=== PATIENT | male | born 1990 | race Caucasian/White ===

== ENCOUNTER 2020-04-01 14:16 | Outpatient (CLI) | payer OTHER, SELFPAY | END 2020-04-01 14:17 | disposition home or self-care (01) | PROVIDERS: PCP Family Medicine; Visit Provider Surgery | DX: Z01.818 Encounter for other preprocedural examination (principal); K40.90 Unilateral inguinal hernia, without obstruction or gangrene, not specified as recurrent | CPT/HCPCS: 36415; 86850; 86900; 86901 ==

== ENCOUNTER 2020-04-06 01:05 | Outpatient (CLI) | payer OTHER, SELFPAY ==
[2020-04-06 19:58] LABS: SARS-CoV-2 RNA PCR Negative
== END 2020-04-06 01:06 | disposition home or self-care (01) ==
LOC: ANHCOVIDDT 01:05
PROVIDERS: PCP Family Medicine; Visit Provider Surgery
DX: Z01.812 Encounter for preprocedural laboratory examination (principal); Z20.828 Contact with and (suspected) exposure to other viral communicable diseases
CPT/HCPCS: 87635; C9803; U0003

== ENCOUNTER 2020-04-08 02:53 | Day surgery (SDC) | payer OTHER, SELFPAY ==
[2020-03-23 14:30] VITALS: BMI 22.4
--- NOTE | 2020-04-07 16:11 | P.PNAN_ITS ---
Anes - Initial Pre Proc Eval Procedure: Operation Date: 04/08/20 12:00 Proposed Procedures p Laparoscopic Left Inguinal Hernia Repair With Mesh, Davinci Assisted - Rocky Fatima DO Date/Time: 04/07/20 16:11 Surgeon: Rocky Fatima DO Pre Op Diagnosis: Left Inguinal Hernia Patient Data Age: 29 Gender: M Height: 1.88 m Weight: 79.38 kg Allergies Allergy/AdvReac Type Severity Reaction Status Date / Time No Known Allergies Allergy Mild Verified 03/23/20 14:30 Home Medications Medication Instructions Recorded Confirmed Type No Home Medications 03/05/20 03/23/20 History Patient hx anesthesia problems: none Family hx anesthesia problems: none PMFSH Surgical History Surgical History [place] teeth removed Family History Family History Father Hypertension Social History Social History Smoking status: Never smoker Alcohol intake: current Drinks per week: 2 Additional occupation/education comments: [employer] Spiritual care concerns: No Anes - Eval Final PreProcedure Day of Procedure 04/07/20 16:11 Patient weight: normal Heart: regular rate and rhythm Lungs: clear to auscultation and normal air movement Airway: Mallampati scale class II Neurological: alert and oriented Last oral intake: >/= 8 hours ASA classification: I Emergent: no Anesthetic plan: proceed Anesthesia type and monitoring: general ETT Informed Consent: The patient's anesthetic plan and its attendant risks and benefits were discussed with the patient/family/POA. Questions were solicited an d answers provided to the satisfaction of the patient/family/POA.
[2020-04-08] VITALS (11 sets, daily range): BP systolic 87–135; BP diastolic 54–84; PULSE 64–98; RESP 12–23; TEMP 36.2–36.9; O2SAT 98–100
[2020-04-08] MEDS: LACTATED RINGERS 1,000 ML 30 ML IV CONT ×2 (10:30→14:14)
[2020-04-08] MEDS: ACETAMINOPHEN 500 MG TABLET 1000 MG PO (10:31)
[2020-04-08] MEDS: KETOROLAC 15 MG/ML VIAL (*BKC) IV PUSH (10:32)
--- NOTE | 2020-04-08 11:30 | SUR.PREOP ---
PT MADE AWARE OF SURGERY DELAY. OFFERED COMFORT MEASURES. DENIES NEEDS.
--- NOTE | 2020-04-08 12:03 | WPDHPUPDATE1 ---
History and Physical Update Update Date/Time: 04/08/20 12:03 History and Physical has been reviewed, including an updated exam of the patient. There are NO changes in the patient's condition. Risks, benefits, and alternatives have been discussed and questions answered. Patient agrees to proceed with procedure.
[2020-04-08] MEDS: ceFAZolin 2 GM/D5W 50 ML 2 GM/50 ML BAG IVPB (12:42)
[2020-04-08] MEDS: BUPIVACAINE/EPINEPHRINE 0.25% 50 ML VIAL INFILTRATE (13:10)
--- NOTE | 2020-04-08 13:57 | PM.PROC ---
Procedure Note - Detailed Date of procedure: 04/08/20 Pre-op diagnosis: Left Inguinal Hernia Post-op diagnosis: same (Indirect LIH) Procedure performed: Laparoscopic left inguinal hernia repair with Progrip mesh, da Maria Fernanda assisted Description of procedure: Procedure as well as risks, benefits, and alternatives were discussed with the patient. Written consent was obtained and placed in chart prior to procedure. Patient was brought back to surgical suite. He was placed supine on operating table. Time-out was done to confirm patient and procedure. He was then intubated by Anesthesia Department. His abdomen was prepped and draped in sterile fashion using chlorhexidine prep. 0.5% bupivacaine with epinephrine was infiltrated at each location for incision. A 12 millimeter transverse incision was made just superior to the umbilicus using a 15 blade scalpel. Blunt dissection was carried out down to the linea alba. A vertical incision was made at the linea alba using a 15 blade scalpel. The peritoneum was then bluntly entered. A 12 millimeter trocar was inserted and carbon dioxide insufflation was used to create a pneumoperitoneum. A camera was inserted and the abdominal cavity was inspected. The patient was placed in slight Trendelenburg position. An 8 millimeter incision was made on the right lateral abdomen and an 8 millimeter trocar was inserted under direct visualization. Another 8 millimeter incision was made in the left lateral abdomen and an 8 millimeter trocar was inserted under direct visualization. The robotic arms were brought up to the patient's bedside and secured to the ports. The camera and instruments were inserted. I then moved over to the robotic console and took control of the camera and instruments. After careful inspection of the abdominal cavity, I began scoring the peritoneum along the left lower quadrant using scissors with electrocautery. The preperitoneal plane was entered and this was carefully dissected caudally along the inferior epigastric vessels. Careful dissection with scissors with electrocautery and blunt dissection was used to continue this dissection. I dissected far enough laterally to allow for mesh placement, and also dissected medially to identify the pubic arch and Joaquim's ligament. The hernia sac was identified and carefully dissected posteriorly. The cord contents were also identified and the peritoneum was carefully dissected far enough posteriorly to allow for mesh placement. Once an adequate pocket was created, I then placed the mesh within the preperitoneal pocket and carefully unfolded it. The mesh was centered on the hernia defect with adequate overlap circumferentially. The inferior edge of the mesh was inspected to ensure that it was far enough away from the peritoneal edge. The mesh appeared in proper position overlying the entire myopectineal orifice. The peritoneum was then closed over the mesh using a 3-0 V-lock running absorbable suture. The robotic instruments were removed. The robotic arms were disengaged from the ports and moved away from the bedside. The patient was flattened out in bed, the ports were removed under direct visualization, and the pneumoperitoneum was released. The fascia of the umbilical incision was approximated using an 0 Vicryl [id number] suture. The skin of the incisions was approximated using 4-0 Monocryl subcuticular suture, and Exofin glue was applied on top. The patient was awakened from anesthesia, extubated, and transferred to recovery. Implants: Progrip Mesh 10cm x 15cm Anesthesia: GETA and local (0.5% bupivicaine with epi) Surgeon: Rocky Fatima DO Estimated blood loss (mL): 10 Drains: No Packing: No Pathology: none sent Complications: No immediate complications Condition: stable Disposition: same day Findings: Robotic assisted laparoscopic left inguinal hernia repair was performed. Patient was found to have a reducible indirect left inguinal herni
[2020-04-08] MEDS: ONDANSETRON INJ 4 MG/2 ML VIAL IV PUSH (15:29)
--- NOTE | 2020-04-08 15:38 | SUR.PHASEII ---
1530- c/o nausea. medicated for same. resting quietly at this time.
--- NOTE | 2020-04-08 17:12 | SUR.PHASEII ---
1700- pt voided sufficiently.
== END 2020-04-08 17:10 | disposition home or self-care (01) ==
PROVIDERS: PCP Family Medicine; Visit Provider Surgery
PROC: 8E0Y4CZ Robotic Assisted Procedure of Lower Extremity, Percutaneous Endoscopic Approach (ICD-10-PCS; CPT 49650; principal; 2020-04-08 12:00)
DX: K40.90 Unilateral inguinal hernia, without obstruction or gangrene, not specified as recurrent (principal)
CPT/HCPCS: 49650; S2900; A9270; C1781; J0690; J1100; J1170; J1885; J2250; J2370; J2405; J2704; J2710; J3010; J7030; J7120

== ENCOUNTER 2022-05-19 07:56 | Outpatient (CLI) | payer OTHER, SELFPAY ==
--- NOTE | ~2022-05-19 | US_ITS ---
Limited Abdominal Sonogram: Real-time sonographic imaging of the right upper quadrant was performed. Clinical History: Right upper quadrant pain Findings: The liver appears normal with no evidence of mass lesion or bile duct dilatation. Main por cipriano vein demonstrates normal direction of flow. The gallbladder is well distended, and appears normal with no evidence of gallstone or wall thickening. The common bile duct measures 5 mm. The visualize d pancreas, aorta, and IVC are unremarkable. Impression: No significant abnormality seen. Reviewed, dictated and finalized at location [] [facility] Impression: No significant abnormality seen.
== END 2022-05-19 07:57 | disposition home or self-care (01) ==
PROVIDERS: PCP Family Medicine; Visit Provider Family Medicine
DX: R10.11 Right upper quadrant pain (principal)
CPT/HCPCS: 76705

== ENCOUNTER 2023-02-10 12:04 | Outpatient (CLI) | payer OTHER, SELFPAY | END 2023-02-10 12:05 | disposition home or self-care (01) | PROVIDERS: PCP Family Medicine; Visit Provider Surgery | DX: K40.90 Unilateral inguinal hernia, without obstruction or gangrene, not specified as recurrent (principal); Z01.818 Encounter for other preprocedural examination | CPT/HCPCS: 36415; 86850; 86900; 86901 ==

== ENCOUNTER 2023-02-14 00:34 | Day surgery (SDC) | payer OTHER, SELFPAY ==
[2023-02-08 08:09] VITALS: BMI 25.0
--- NOTE | 2023-02-08 08:10 | PC.NURSE ---
Report to the Outpatient Waiting Room, entrance under the green pavilion located off [facility], at time _1030_ on date _[id number]_. Planned Procedure Time: _1230_. Time changes happen often and if your time is changed the preop area will call you the afternoon before. - You and your visitor will be asked to self-screen and do not enter if you have any COVID symptoms. - A mask is optional within the hospital at this time. Patients may have clear liquids (water, carbonated beverages, clear teas, apple juice) until 3 hours prior to surgery with a maximum of 20 ounces. - No food from midnight until time of surgery Take the following medications with a SIP of water the morning of surgery: ___None DO NOT STOP ANY OF YOUR OTHER PRESCRIPTION MEDICATIONS PRIOR TO SURGERY ?EXCEPT THE FOLLOWING Medications to discontinue per physician ____None Date to take last dose Please no make-up, nail french, hairspray, perfume, deodorant, or body powder the day of surgery. No jewelry (including any body piercings) or valuables the day of surgery, leave them at home. Please take a shower the morning of, surgery with an Hebiclense (Chlorhexadine gluconate) an antibacterial soap. Wear comfortable, loose fitting clothing. - Jewelry must be removed prior to entering the operating room. Rings and piercings that are not removed may be cut off. - The hospital will not accept responsibility for valuables. - Please leave all valuables, including medications, at home the day of surgery. If you are going home after surgery, a licensed cement mixer driver must drive you home. - NO public transportation without another adult if you receive anesthesia. - We recommend that an adult stay with you for 24 hours following discharge. - We also recommend that you do not drive, make important decision, drink alcoholic beverages, or take any drugs that were not prescribed by your health care provider for at least 24 hours after your discharge time. Follow any additional instructions given to you from your surgeon. If you or anyone in your household have experienced Covid symptoms in the past week, please notify your surgeon or the nurse liaison at the phone number below for possible testing. Telephone instructions given to _Patient__and asked if any additional questions and then verbalized understanding. Patient advised to call surgeon office or pre surgery nurse liaison [phone] if any additional questions.
[2023-02-14] VITALS (8 sets, daily range): BP systolic 100–139; BP diastolic 57–84; PULSE 77–96; RESP 13–16; TEMP 36.3–37.1; O2SAT 99–100; BMI 25.0
[2023-02-14] MEDS: LACTATED RINGERS 1,000 ML 30 ML IV CONT ×2 (11:05→13:25)
[2023-02-14] MEDS: KETOROLAC 15 MG/ML VIAL (*BKC) IV PUSH (11:11)
[2023-02-14] MEDS: ACETAMINOPHEN 500 MG TABLET 1000 MG PO (11:11)
--- NOTE | 2023-02-14 11:43 | WPDHPUPDATE1 ---
History and Physical Update Update Date/Time: 02/14/23 11:43 History and Physical has been reviewed, including an updated exam of the patient. There are NO changes in the patient's condition. Risks, benefits, and alternatives have been discussed and questions answered. Patient agrees to proceed with procedure.
--- NOTE | 2023-02-14 11:43 | PM.IMHP ---
H&P: HPI History of Present Illness Date/Time: 02/14/23 11:43 Chief Complaint: Right inguinal hernia Narrative: This is a 32-year-old man who presents for right inguinal hernia repair. He reports no changes since last seen in the office. Review of Systems Review of Systems: All systems reviewed & are unremarkable except as noted in HPI and below Constitutional: Constitutional: Denies chills, Denies fever(s), Denies headache(s) and Denies weight loss Eyes: Eyes: Denies change in vision ENT: Denies dizziness, Denies headache(s), Denies neck mass and Denies throat swelling Cardiovascular: Cardiovascular: Denies chest pain, Denies lightheadedness and Denies dyspnea Respiratory: Respiratory: Denies cough, Denies dyspnea and Denies wheezing Gastrointestinal: Gastrointestinal: Denies abdominal pain, Denies change in bowel habits, Denies nausea and Denies vomiting Genitourinary: Genitourinary: Denies hematuria and Denies dysuria Musculoskeletal: Musculoskeletal: Reports as per HPI Integumentary/Breasts: Skin/Breast: Reports as per HPI Neurologic: Denies dizziness and Denies headache(s) Allergic/Immunologic: Allergic/Immunologic: Denies throat swelling and Denies wheezing PMFSH Past Medical History Medical History Pure hypercholesterolemia, unspecified Tachycardia, unspecified Surgical History Surgical History History of inguinal hernia repair 04/08/20 laparoscopic LIH repair with progrip mesh, davinci assisted. [place] teeth removed Family History Family History Father Hypertension Social History Social History Smoking status: Never smoker Alcohol intake: current Drinks per week: 2 Alcohol use details: social Substance use: never Substance use type: does not use Lack of Transportation: No Lack of Food: Never True Current Housing: I Have Housing Concerned About Future Housing: No Difficulty Paying Gas/Electric Bills: No Difficulty Paying for Meds: No Currently Unemployed: No Education: Bachelor's Degree Difficulty w/ Childcare or Family Care: No Living arrangements: with family Occupation/Education: occupation Additional occupation/education comments: Salesman Gender identity (if verbalized by the patient): Male Sexual Orientation (if Verbalized by the Patient): Straight or Heterosexual Spiritual care concerns: No Meds Home Medications and Allergies Home Medications Medication Instructions Recorded Confirmed Type No Home Medications 04/23/20 02/14/23 History Allergies Allergy/AdvReac Type Severity Reaction Status Date / Time No Known Allergies Allergy Mild Verified 02/14/23 11:02 Exam Const: General: no acute distress and alert Orientation/consciousness: patient oriented x3 HENMT: Head: normocephalic and atraumatic Ears: hearing grossly normal bilaterally Face/Nose/Sinus: Normal nares present Mouth: Yes Normal oral and palatal mucosa present Eyes: Periorbital: periorbital findings normal Sclera: sclerae normal EOM: EOMs intact bilaterally Neck: Neck: normal visual inspection, no lymphadenopathy and trachea midline Chest: Chest palpation & inspection: normal inspection of the chest Resp: Effort & Inspection: normal respiratory effort Auscultation: clear to auscultation bilaterally Cardio: Jugular venous distension: no JVD Rate: regular rate Rhythm: regular rhythm Heart sounds: S1 normal heart sound present and S2 normal heart sound present Peripheral pulses: Peripheral pulses 2+ throughout GI: Inspection: normal to inspection GI Palp: Yes Soft to palpation, No Tenderness to palpation present (GI), No Guarding due to palpation present (GI) and No Rebound tenderness present Percussion: Yes normal to percuss
[2023-02-14] MEDS: SCOPOLAMINE 1.5 MG PATCH TRANSDERM (12:05)
--- NOTE | 2023-02-14 12:05 | WPDANESEPPF ---
Anes - Initial Pre Proc Eval Procedure: Operation Date: 02/14/23 12:30 Proposed Procedures p Laparoscopic Right Inguinal Hernia Repair with Mesh, Davinci Assisted - Rocky Fatima DO Date/Time: 02/14/23 12:05 Surgeon: Rocky Fatima DO Pre Op Diagnosis: Rt Ing Hernia Patient Data Age: 32 Gender: M Height: 1.88 m Weight: 88.2 kg Allergies Allergy/AdvReac Type Severity Reaction Status Date / Time No Known Allergies Allergy Mild Verified 02/14/23 11:02 Home Medications Medication Instructions Recorded Confirmed Type No Home Medications 04/23/20 02/14/23 History Patient hx anesthesia problems: post op nausea/vomiting Family hx anesthesia problems: none Results Review: All pre-operative results and documents have been reviewed as part of the pre-operative evaluation. [facility] Past Medical History Medical History Pure hypercholesterolemia, unspecified Tachycardia, unspecified Surgical History Surgical History History of inguinal hernia repair 04/08/20 laparoscopic LIH repair with progrip mesh, davinci assisted. [place] teeth removed Family History Family History Father Hypertension Social History Social History Smoking status: Never smoker Alcohol intake: current Drinks per week: 2 Alcohol use details: social Substance use: never Substance use type: does not use Lack of Transportation: No Lack of Food: Never True Current Housing: I Have Housing Concerned About Future Housing: No Difficulty Paying Gas/Electric Bills: No Difficulty Paying for Meds: No Currently Unemployed: No Education: Bachelor's Degree Difficulty w/ Childcare or Family Care: No Living arrangements: with family Occupation/Education: occupation Additional occupation/education comments: Salesman Gender identity (if verbalized by the patient): Male Sexual Orientation (if Verbalized by the Patient): Straight or Heterosexual Spiritual care concerns: No Anes - Eval Final PreProcedure Day of Procedure 02/14/23 12:05 Patient weight: normal Heart: regular rate and rhythm Lungs: clear to auscultation Airway: Mallampati scale Neurological: alert and oriented Last oral intake: >/= 8 hours ASA classification: II Anesthetic plan: proceed Anesthesia type and monitoring: general ETT and standard monitoring Results Review: All pre-operative results and documents have been reviewed as part of the pre-operative evaluation. Informed Consent: The patient's anesthetic plan and its attendant risks and benefits were discussed with the patient/family/POA. Questions were solicited and answers provided to the satisfaction of the patient/family/POA.
[2023-02-14] MEDS: ceFAZolin 2 GM/D5W 50 ML 2 GM/50 ML BAG IVPB (12:12)
--- NOTE | 2023-02-14 13:16 | W.PM.PROC2 ---
Procedure Note - Detailed Date of Procedure 02/14/23 Pre-op Diagnosis Right inguinal hernia Post-op Diagnosis Same (Indirect RIH) Procedure Performed Laparoscopic right inguinal hernia repair with mesh, da Maria Fernanda assisted Surgeon Rocky Fatima, DO Anesthesia General and Local (0.5% bupivacaine with epinephrine) Indications This is a 32-year-old man who presented with right groin pain that he noticed about 3 months ago. He 1st noticed this well he was lifting weights. This felt similar to when he had a left inguinal hernia 3 years ago. He was found to have a reducible right inguinal hernia on physical exam. Discussions were made with the patient about treatment options and decision was made to proceed with laparoscopic right inguinal hernia repair with mesh da Maria Fernanda assisted. Findings Laparoscopic right inguinal hernia repair was performed. The patient was found to have evidence of a small indirect right inguinal hernia. There was no sign of a recurrent left inguinal hernia and the previous hernia mesh on the left side appeared in proper position. A robotic transabdominal preperitoneal approach was utilized for the right inguinal hernia repair. Once a wide enough preperitoneal pocket was created and the hernia sac was reduced, I then placed a large right Bard 3DMax mid mesh overlying the entire right myopectineal orifice. Description of Procedure Procedure as well as risks, benefits, and alternatives were discussed with the patient. Written consent was obtained and placed in chart prior to procedure. Patient was brought back to surgical suite. He was placed supine on operating table. Time-out was done to confirm patient and procedure. He was then intubated by Anesthesia Department. His abdomen was prepped and draped in sterile fashion using chlorhexidine prep. 0.5% bupivacaine with epinephrine was infiltrated at each location for incision. An 8 mm incision was made in the left lateral abdomen, and a 5 mm Optiview trocar was advanced through the abdominal layers under direct visualization. Once inside the abdominal cavity, carbon dioxide insufflation was used to create a pneumoperitoneum. A camera was inserted and the abdominal cavity was inspected. The patient was placed in slight Trendelenburg position. An 8 millimeter incision was made on the right lateral abdomen and an 8 millimeter trocar was inserted under direct visualization. Another 8 millimeter incision was made just superior to the umbilicus and an 8 millimeter trocar was inserted under direct visualization. The 5 mm port was then removed and this was replaced with another 8 mm robotic port. The robotic arms were brought up to the patient's bedside and secured to the ports. The camera and instruments were inserted. I then moved over to the robotic console and took control of the camera and instruments. After careful inspection of the abdominal cavity, I began scoring the peritoneum along the right lower quadrant using scissors with electrocautery. The preperitoneal plane was entered and this was carefully dissected caudally along the inferior epigastric vessels. Careful dissection with scissors with electrocautery and blunt dissection was used to continue this dissection. I dissected far enough laterally to allow for mesh placement, and also dissected medially to identify the pubic arch and Joaquim's ligament. The hernia sac was identified and carefully dissected posteriorly. The cord contents were also identified and the peritoneum was carefully dissected far enough posteriorly to allow for mesh placement. Once an adequate pocket was created, I then placed the mesh within the preperitoneal pocket and carefully unfolded it. The mesh was centered on the hernia defect with adequate overlap circumferentially. The inferior edge of the mesh was inspected to ensure that it was far enough away from the peritoneal edge. The mesh appeared in proper position overlying the entire myopectineal or
[2023-02-14] MEDS: fentaNYL CITRATE INJ (*CRX) 100 MCG/2 ML VIAL 25 MCG IV PUSH ×2 (14:21→14:23)
[2023-02-14] MEDS: oxyCODONE HCL (*CRX) 5 MG TAB IR PO (14:54)
== END 2023-02-14 15:35 | disposition home or self-care (01) ==
PROVIDERS: PCP Family Medicine; Visit Provider Surgery
PROC: 8E0Y4CZ Robotic Assisted Procedure of Lower Extremity, Percutaneous Endoscopic Approach (ICD-10-PCS; CPT 49650; principal; 2023-02-14 12:30)
DX: K40.90 Unilateral inguinal hernia, without obstruction or gangrene, not specified as recurrent (principal)
CPT/HCPCS: 49650; S2900; 36415; 86850; 86900; 86901; A9270; C1781; J0690; J1100; J1885; J2250; J2405; J2704; J3010; J7120

== ENCOUNTER 2024-02-07 01:15 | Day surgery (SDC) | payer OTHER, SELFPAY ==
[2024-01-23 13:30] VITALS: BMI 24.0
[2024-02-07 12:11] VITALS: BP 129/79; PULSE 90; RESP 20; TEMP 36.2; O2SAT 100
[2024-02-07] MEDS: LACTATED RINGERS 1,000 ML 150 ML IV CONT (12:19)
--- NOTE | 2024-02-07 12:48 | WPDANESEPPF ---
Anes - Initial Pre Proc Eval Procedure: Operation Date: 02/07/24 13:30 Proposed Procedures p Colonoscopy - George Guido MD Date/Time: 02/07/24 12:48 Surgeon: George Guido MD Pre Op Diagnosis: melena Patient Data Age: 33 Gender: M Height: 1.88 m Weight: 81.2 kg Last Vital Signs Temp 97.2 F L 02/07/24 12:11 Pulse 90 02/07/24 12:11 Resp 20 02/07/24 12:11 BP 129/79 02/07/24 12:11 Pulse Ox 100 02/07/24 12:11 O2 Del Method Room Air 02/07/24 12:11 Allergies Allergy/AdvReac Type Severity Reaction Status Date / Time No Known Allergies Allergy Mild Verified 02/07/24 12:08 Home Medications Medication Instructions Recorded Confirmed Type No Home Medications 01/23/24 01/23/24 History Patient hx anesthesia problems: none Family hx anesthesia problems: none Results Review: All pre-operative results and documents have been reviewed as part of the pre-operative evaluation. [facility] Past Medical History Medical History Pure hypercholesterolemia, unspecified Tachycardia, unspecified Surgical History Surgical History History of inguinal hernia repair 04/08/20 laparoscopic LIH repair with progrip mesh, davinci assisted. History of inguinal hernia repair 02/14/2023 Laparoscopic robotic assisted right inguinal hernia repair [place] teeth removed Family History Family History Father Hypertension Social History Social History Smoking status: Never smoker Alcohol intake: current Drinks per week: 2 Alcohol use details: social Substance use: never Substance use type: does not use Do You Feel Safe in your Home?: Yes Lack of Transportation: No Lack of Food: Never True Current Housing: I Have Housing Concerned About Future Housing: No Difficulty Paying Gas/Electric Bills: No Difficulty Paying for Meds: No Currently Unemployed: No Education: Bachelor's Degree Difficulty w/ Childcare or Family Care: No Living arrangements: with family Occupation/Education: occupation Additional occupation/education comments: Salesman Gender identity (if verbalized by the patient): Male Sexual Orientation (if Verbalized by the Patient): Straight or Heterosexual Spiritual care concerns: No Anes - Eval Final PreProcedure Day of Procedure 02/07/24 12:48 Patient weight: normal Heart: regular rate and rhythm Lungs: clear to auscultation Airway: Mallampati scale class II Neurological: alert and oriented Last oral intake: >/= 8 hours ASA classification: II Emergent: no Anesthetic plan: proceed Anesthesia type and monitoring: general GIVS and standard monitoring Results Review: All pre-operative results and documents have been reviewed as part of the pre-operative evaluation. Informed Consent: The patient's anesthetic plan and its attendant risks and benefits were discussed with the patient/family/POA. Questions were solicited and answers provided to the satisfaction of the patient/family/POA.
--- NOTE | 2024-02-07 13:08 | PM.HPGS ---
History of Present Illness History of Present Illness Consent: Risks, benefits, and alternatives have been discussed and questions answered. Patient agrees to proceed with procedure. Chief complaint: melena Narrative: Gregory Turk is a 33 year old male here for first colonoscopy, had rectal bleeding Review of Systems Review of Systems: All systems reviewed & are unremarkable except as noted in HPI and below PMFSH Past Medical History Medical History (Updated 02/07/24 @ 13:11 by George Guido MD) Pure hypercholesterolemia, unspecified Rectal bleeding Tachycardia, unspecified Surgical History Surgical History History of inguinal hernia repair 04/08/20 laparoscopic LIH repair with progrip mesh, davinci assisted. History of inguinal hernia repair 02/14/2023 Laparoscopic robotic assisted right inguinal hernia repair [place] teeth removed Family History Family History Father Hypertension Social History Social History Smoking status: Never smoker Alcohol intake: current Drinks per week: 2 Alcohol use details: social Substance use: never Substance use type: does not use Do You Feel Safe in your Home?: Yes Lack of Transportation: No Lack of Food: Never True Current Housing: I Have Housing Concerned About Future Housing: No Difficulty Paying Gas/Electric Bills: No Difficulty Paying for Meds: No Currently Unemployed: No Education: Bachelor's Degree Difficulty w/ Childcare or Family Care: No Living arrangements: with family Occupation/Education: occupation Additional occupation/education comments: [employer] Gender identity (if verbalized by the patient): Male Sexual Orientation (if Verbalized by the Patient): Straight or Heterosexual Spiritual care concerns: No Meds Home Medications and Allergies Home Medications Medication Instructions Recorded Confirmed Type No Home Medications 01/23/24 01/23/24 History Allergies Allergy/AdvReac Type Severity Reaction Status Date / Time No Known Allergies Allergy Mild Verified 02/07/24 12:08 Vital Signs Vital Signs - 24 hr 02/07/24 12:11 Temperature 97.2 F L Pulse Rate 90 Respiratory Rate 20 Blood Pressure 129/79 Pulse Oximetry 100 Oxygen Delivery Room Air Exam Const: General: comfortable and no acute distress HENMT: Face/Nose/Sinus: Normal nares present Eyes: General: appearance normal, both eyes and all related structures Neck: Neck: no JVD Resp: Auscultation: clear to auscultation bilaterally Cardio: Rate: regular rate Rhythm: regular rhythm GI: Inspection: non-distended GI Palp: Yes Soft to palpation Skin: General skin exam: normal color Neuro: General: gait normal Speech: normal speech Extrem: General: normal to inspection Psych: Mental Status: mental status grossly normal Assessment and Plan Assessment and plan (1) Rectal bleeding: Code(s): K62.5 - Hemorrhage of anus and rectum Status: Acute Assessment and Plan: colonoscopy
[2024-02-07 13:32] VITALS: BP 102/72; PULSE 86; RESP 21; O2SAT 100
[2024-02-07 13:42] VITALS: BP 108/74; PULSE 78; RESP 20; O2SAT 100
[2024-02-07 13:52] VITALS: BP 127/83; PULSE 77; RESP 19; O2SAT 99
== END 2024-02-07 13:57 | disposition home or self-care (01) ==
PROVIDERS: PCP Family Medicine; Visit Provider Internal Medicine Gastroenterology
PROC: 0DJD8ZZ Inspection of Lower Intestinal Tract, Via Natural or Artificial Opening Endoscopic (ICD-10-PCS; CPT 45378; principal; 2024-02-07 13:30)
DX: D12.5 Benign neoplasm of sigmoid colon (principal); K64.8 Other hemorrhoids
CPT/HCPCS: 45385; 88305; J2704; J7120

== ENCOUNTER 2024-03-13 16:02 | Outpatient (CLI) | payer OTHER, SELFPAY ==
--- NOTE | ~2024-03-13 | CT_ITS ---
CLINICAL INDICATION: Left-sided abdominal pain. COMPARISON: None. TECHNIQUE: Computed tomography (CT) of the abdomen and pelvis was performed without intravenous contr ast. The dose-length product was 434.92 mGy-cm. FINDINGS/OBSERVATIONS: Visualized lower thorax:The bilateral lung bases are clear. The heart is of normal size, without pericardial effusion. Liver: The liver is unremarkable in size but decreased in attenuation suggesting fatty infiltration. Gallbladder and biliary system: The gallbladder is decompressed, limiting its evaluation. Pancreas: Limited evaluation of the pancreas secondary to the lack of intravenous contrast. Spleen: The spleen demonstrates homogeneous attenuation and is borderline enlarged measuring 12 cm in longitudinal dimension. Kidneys: Multiple 2 and 3 mm calcified stones are identified primarily within the lower pole of the l eft kidney without hydronephrosis. No discrete calculi are detected within the right kidney. Adrenal glands: The bilateral adrenal glands are unremarkable in their course and contour. Gastrointestinal tract: Significant fecal stasis is identified within the colon. Scattered diverticuli are identified within the sigmoid colon Appendix:The air-filled retrocecal appendix is of normal caliber and extends medially (series 3, imag e 130). Vasculature: No significant calcification is identified within the abdominal aorta. Although not to the ideal modality for evaluation, dilated veins are identified within the scrotum (r ight greater than left) measuring up to 4.4 mm, for which a varicocele is suspected, and clinical cor relation is needed. Lymph nodes: No pathologically enlarged or morphologically suspicious lymph nodes are identified with in the retroperitoneum or at the root of the mesentery. Pelvic structures:The bladder is only minimally distended, but otherwise unremarkable. The prostate gland is not enlarged. Body wall and musculoskeletal: Small fat-containing umbilical hernia. IMPRESSION: Multiple left renal nonobstructing calculi measuring 2 and 3 mm. Borderline splenic enlargement. Additional findings which may represent bilateral varicoceles, as detailed above (for which clinical correlation is needed). Sigmoid diverticulosis without surrounding inflammation. Reviewed, dictated and finalized at location A. IMPRESSION: Multiple left renal nonobstructing calculi measuring 2 and 3 mm. Borderline splenic enlargement. Additional findings which may represent bilateral varicoceles, as detailed abov e (for which clinical correlation is needed). Sigmoid diverticulosis without surrounding inflammation.
== END 2024-03-13 16:03 | disposition home or self-care (01) ==
LOC: ANHIMG 16:04
PROVIDERS: PCP Family Medicine; Visit Provider Family Medicine
DX: N20.0 Calculus of kidney (principal); K57.30 Diverticulosis of large intestine without perforation or abscess without bleeding
CPT/HCPCS: 74176

== ENCOUNTER 2024-09-18 15:27 | Outpatient (CLI) | payer OTHER, SELFPAY ==
--- NOTE | ~2024-09-18 | XR_ITS ---
Exam: Abdomen 1V HISTORY: personal history of kidney stones COMPARISON: Reference is made to CT examination of the abdomen and pelvis dated 03/13/2024, which demo nstrated nonobstructing stones within the lower pole of the left kidney TECHNIQUE: Supine images of the abdomen FINDINGS: Bowel gas pattern is non-obstructive. There is no free air or deep sulci. Significant fecal stasis is identified projecting within the colon, which obscures the presence or ab sence of renal calculi within the retroperitoneum. Lung bases are not included. Bones and soft tissues are unremarkable. IMPRESSION: Significant fecal stasis within the colon, obscuring the presence or absence of renal calculi within the retroperitoneum. Reviewed, dictated and finalized at location A.
--- OUTSIDE RECORDS SUMMARY | 2024-09-18 16:38 | XMS_ITS | Data Portability ---
Author Organization [facility], Main Office Address [address] [place] [address] Assessment No assessment recorded. Plan of Treatment Reminders Order Date Submit Date Provider Last Modified By Organization Details Last Modified Time Details Appointments None record ed. Lab None record ed. Referral None record ed. Procedures None record ed. Surgeries None record ed. Imaging None record ed. Medication Orders None record ed. Patient TargetsNo targets recorded. Patient Instructions Encounter Date Encounter Id Patient Instructions Last Modified By Organization Details Last Modified Time 01/24/2024 [id number] He will probably f/u with me about 2 - 3 weeks after his c-scope. I d/w him he will be a total of 5 treatments starting with his RP. On today's visit I spent a total of {{30 35 40* 45 50 55 60}} minutes prepping for his visit (reviewing shared records), [id number] with him and documenting. Not available 01/24/2024 18:44:05 Reason for Referral None Reported. Problems Name Problem SNOMED Code Status Onset Date Resolution Date Notes Provider Name and Address Organization Details Recorded Time Constipation 98286249 Active 2023 Ivy Tejada MD [address] [place] [address],[address], [address], [facility] 4 18:43:12 External hemorrhoids 23098119 Active 2023 Ivy Tejada MD [address] [place] [address],[place] [address], [place], [address], [facility] 4 18:43:14 Pile easily reducible 392334299 Active 08/21/ 2024 8/21/24: No tx - [place] [address] [place] [address],[address], [place], [address], [facility] 4 18:43:27 Problem Notes None recorded. Procedures Surgical History Date Name Laterality Status Provider Name and Address Organization Details Recorded Time 4 Anoscopy completed Ivy Tejada MD [address] [place] [address],[address], [place], [address], [facility] 01/24/2024 18:39:45 3 repair of right inguinal [place] [address] [place] [address],[address], [place], [address], [facility] 01/24/2024 18:37:44 0 repair of left inguinal hernia completed Ivy Tejada MD [address] [place] [address],[address], [place], [address], [facility] 01/24/2024 18:37:27 9 Colonoscopy completed Ivy Tejada MD [address] [place] [address],[address], [place], [address], [facility] 01/24/2024 18:37:03 Imaging Results None recorded. Procedure Notes None recorded. Medical Equipment None Reported. Allergies No known drug allergies Medications Name Sig Start Date Stop Date Status Note LastModified by Organization Details LastModified Time azithromyci n 250 mg tablet TAKE 2 TABLETS BY MOUTH TODAY, THEN TAKE 1 TABLET DAILY FOR 4 DAYS DIRECTED 01/23 completed Not Available Not Available Not Available prednisone 20 mg tablet TAKE 2 TABLETS BY MOUTH ONCE DAILY FOR 10 DAYS 01/23 completed Not Available Not Available Not Available oxycodone-a cetaminophe n 5 mg-325 mg tablet 0.5 - 1 TABLET ORALLY EVERY 4 HOURS NEEDED FOR PAIN 01/23 completed Not Available Not Available Not Available epinephrine 0.3 mg/0.3 mL injection, auto-inject or TAKE DIRECTED ON THE BOX- INJECT IN ANTEROLAT ERAL THIGH active Not Available Not Available No t Available amoxicillin 875 mg-robertu m clavulanate 125 mg tablet TAKE 1 TABLET BY MOUTH TWICE A DAY FOR 10 DAYS 01/23 completed Not Available Not Available Not Available Vitals None Recorded Social History Question Answer Notes LastModified by Organizat ion Details LastModified Time Tobacco Smoking Status Never Smoker Ivy Tejada MD [address] [facility],[address], [place], [address], [facility] [place] 01/24/2024 18:36:18 Alcohol Use Yes Information n ot available 01/24/2024 Alcohol Amount Occasional Information not available 01/24/2024 Caffeine Use Yes Information not available 01/24/2024 Caffeine Amount 1 Cup Coffee Daily Information not available 01/24/2024 Illicit Drug Use No Information not available 01/24/2024 What Was The Date Of Your Most Recent Tobacco Screening? 01/24/2024 Information not available 01/24/2024 Do You Or Have You Ever Used Any Other Forms Of Tobacco Or Nicotine? No Information not available 01/24/2024 Sex: Unknown Functional Status None recorded. Mental Status None recorded. Family History Relationship Description Onset Age of this Age Resolved Age Notes LastModified by Organization Details LastModified Time Father No current problems or disability Not available 01/23 18:35:55 Mother No current problems or disability Not available 01/23 18:35:55 Medical History Condition Response Coronary Artery Disease N Other N Atrial Fibrillation N Kidney Stones N Hyperthyroidism N Hernia Y Depression N COPD N Hypothyroidism N Glaucoma N Accidental Bowel Leakage N Headaches/Migraines N Deep Vein Thrombosis N Cardiac Dysrhythmia N Anxiety Disorder N MRSA/VRE Exposure N Genital Herpes N Diverticulosis N Cancer N Stroke N Head Trauma N Crohn's Disease N Genital Warts N Liver Disease/Hepatitis N HIV/AIDS N High Cholesterol N Irritable Bowel Syndrome N Kidney Disease N Autoimmune Disease N Anemia N Celiac Disease N Arthritis/Gout N Anal/Rectal Trauma/Injury N Diabetes N Cataracts N Bleeding Disorder N Seizures/Epilepsy N Congestive Heart Failure (CHF) N Diverticulitis N Heart Attack N Asthma N Reflux/GERD N Ulcerative Colitis N Sleep Apnea N Mitral Valve Prolapse N Aneurysm N Heart Disease N Pulmonary Embolism N Hypertension N Colon/Rectal Polyps N Past Encounters Encounter ID Performer Location Encounter Start Date Encounter Closed Date Diagnosis/Indication Diagnosis SNOMED-CT Code Diagnosis ICD10 Code Diagnosis Note [id number] Ivy Tejada MD Main Office [address] [place] [address] 01/24/2024 15:16:32 01/24/2024 16:36:50 Pile easily reducible 631964904 K64.1 Stage 2 - 3 internal hemorrhoid s: I discussed hemorrhoid s in general with him as well as the treatment options. He now understand s that any non-surgic al procedure (infrared coagulatio n or banding) would be done on his internal hemorrhoid s. I do think he would benefit from IRC. I gave him full informed consent including risks, benefits and alternativ es. All questions were answered. Given that he already has the c-scope scheduled in 2 weeks, he is going to go ahead and have this done. I d/w him that I do think his bleeding is coming from his internal hemorrhoid s.He does want to have treatment. He will schedule to start his series about 2 - 3 weeks after his c-scope (assuming that it is negative). External hemorrhoids 239 [address] K64.4 These will improve with IRC. He understand s the only way to directly treat external hemorrhoid s/skin tags would be with a surgical excision. He does not wish to pursue this and his hemorrhoid s are not bad enough to warrant surgery. His externals do not bother him much anyway. I advised he should consistent ly use the moist baby wipes. Constipation 82122082 K5 9.00 This is not bad. He of course needs to consistent ly eat a high fiber diet and drink plenty of water. I advised that he start BOTH Bene Fiber and Miralax at very low dose (1/4 tsp of each daily) and slowly increase. Once he figures out what dose keeps his BM's at daily and soft ([place] Scale type 4), he should take it daily and forever. Health Concerns Section Related Observation LastModified by Organization Detai ls LastModified Time None Recorded Concern Status LastModified by Organization Details LastModified Time None Recorded Advance Directives Directive None Recorded Payers Encounter Date Sequence Insurance Name Policy Number Policy Sanchez Covered Member ID Sanchez Member ID Guarantor Name 01/24/2024 1 [employer] ([facility] [id number] Gregory Turk [id number] Gregory Turk Notes Date Note Type Note Provider Name and Address Organization Details Recorded Time 01/24/2024 text/html This is an extre ana pleasant 33 year old man who has had BRB streaked on his BM's intermittently since 02/2023 (this started 9 days after a right inguinal hernia surgery when he was having some constipation). The bleeding has increased over the last couple of months. He presents today for an evaluation and to discuss his treatment option. Bleeding: As above - her has BRB streaked on his BM's. This can be every day for 1 - 2 weeks but then go away for 1 - 2 weeks. He has never had heavy bleeding. He has no blood mixed in with the BM. He has never had leakage of blood in between BM's. Pain: He has no anal/rectal pain.He has been having left lower quadrant abdominal pain since last fall. He states this started when he picked up his golf bag when he was in an awkward position. The pain is located in one of the stab wound from his left inguinal hernia surgery that was done in 2019. It worsens with certain movements. It might worsen when he has a more firm stool/is constipated. His bleeding started before the abdominal pain/strain, but it seemed to worsen after the pain started. Itching: He occasionally gets minor external itching and irritation. Discharge: He has no difficuty getting or staying clean after BM's. Prolapse: Not that he feels or has to manually reduce. External swelling: Not really Discomfort: He has minor internal symptoms of pressure, a sense of being blocked when trying to have a BM and a sense of incomplete emptying after BM's. Previous Hemorrhoid Treatment: None Previous Lower GI Endoscopy: He had a negative c-scope done in 2019 due to stomach issues . I do not have access to his c-scope report. Given his bleeding and abdominal pain currently, he has a c-scope scheduled on 02/07/24. Bowel Habits: He has had long standing 1 - 2 times daily BM's that can range from a [place] Scale type 2 - 5. He admits he does not consistently eat enough fiber or drink enough water. Ivy Tejada MD [address] [facility],[address], [place], [address], [facility] 01/24/2024 18:45:08
== END 2024-09-18 15:28 | disposition home or self-care (01) ==
PROVIDERS: PCP Family Medicine; Visit Provider Urology
DX: R93.429 Abnormal radiologic findings on diagnostic imaging of unspecified kidney (principal); K56.41 Fecal impaction; Z87.442 Personal history of urinary calculi
CPT/HCPCS: 74018

== ENCOUNTER 2025-01-20 09:45 | Outpatient (CLI) | payer OTHER, SELFPAY ==
--- NOTE | ~2025-01-20 | XR_ITS ---
EXAM/ PROCEDURE: XR thoracic spine 2V - 01/20/2025 10:00 CDT HISTORY: 34 years old Male with M54.9 - Dorsalgia, unspecified, NKI, MID BACK PAIN M54.9 - Dorsalgi a, unspecified, NKI, MID BACK PAIN COMPARISON: None available TECHNIQUE: Four view(s) FINDINGS/ IMPRESSION: There are no fractures or dislocations.Intervertebral disc spaces are within normal limits. Visualize d portion of lungs are clear. Reviewed, dictated and finalized at location A.
== END 2025-01-20 09:46 | disposition home or self-care (01) ==
PROVIDERS: PCP Family Medicine
DX: M54.9 Dorsalgia, unspecified (principal)
CPT/HCPCS: 72070

== ENCOUNTER 2025-01-23 10:44 | Outpatient (CLI) | payer OTHER, SELFPAY ==
--- OUTSIDE RECORDS SUMMARY | 2025-01-22 15:00 | XMS_ITS | Encounter Summary ---
Author Organization [facility] Address [address] [place] [address] Phone Care Team Providers Care Organization Development Consultant Name Role Phone Oskar Richardson MD Primary Care Provider [phone] Reason for Referral * MRI/CAT/PET Scan (Routine) - Authorized Specialty Diagnoses / Procedures Referred By Jaswinder t Referred To Contact Diagnoses Left groin pain History of inguinal hernia repair Procedures CT Abdomen Pelvis W Contrast Evaristo Tinoco MD [address] [place] [address] Phone: tel: fax: [address] [address] Referral ID Status Reason Start Date Expiration Date V isits Requested Visits Authorized [id number] Authorized 01/22/2025 02/21/2026 1 1 Reason for Visit * Consultation (Routine) - Authorized Specialty Diagnoses / Procedures Referred By Contac t Referred To Contact Minimally Invasive Surgery Diagnoses Unilateral inguinal hernia without obstruction or gangrene, recurrence not specified Oskar Richardson MD [address] [place] [address] Phone: tel: fax: Evaristo Tinoco MD [address] [place] [address] Phone: tel: fax: Referral ID Status Reason Start Date Expiration Date Visits Requested Visits Authorized [id number] Authorized Specialty Services Required 07/24/2024 08/23/2025 6 6 Encounter Details Date Type Department Care Team (Late st Contact Info) Description 01/22/2025 3:00 PM CDT Office Visit [facility] Minimally Invasive Surgery [address] [place] [address] Medical Office [address] [place] [address] Evaristo Tinoco MD [address] [place], [place] [id number] Left groin pain (Primary Dx); History of inguinal hernia repair Social History Tobacco Use Types Packs/Day Years Used Date Smoking Tobacco: Never Smokeless Tobacco: Never Alcohol Use Standard Drinks/Week Comments Yes 0 (1 standard drink = 0.6 oz pur e alcohol) AUDIT-C Answer Date Recorded Q1: How often do you have a drink containing alc ohol? Monthly or less 01/22/2025 Q2: How many drinks containi ng alcohol do you have on a typical day when you are drinking? 1 or 2 01/22/2025 Q3: How often do you have si x or more drinks on one occasion? Never 01/22/2025 Sex and Gender Information Value Date Recorded Sex Assigned at Not on file Legal Sex Male 10:45 PM [employer] Gender Identity Not on file Sexual Orientation Straight 09/07/2018 9: 47 PM CDT documented as of this encounter Last Filed Vital Signs Vital Sign Reading Time Taken Comments Blood Pressure 111/77 01/22/2025 2:50 PM CDT Pulse 94 01/22/2025 2:50 PM CDT Temperature 37.1 C (98.8 F) 01/22/2025 2:50 PM CDT Respiratory Rate - - Oxygen Saturation 95% 01/22/2025 2:50 PM CDT Inhaled Oxygen Concentration - - Weight 80.9 kg (178 lb 6.4 oz) 01/22/2025 2:50 P M CDT Height 188 cm (6' 2) 01/22/2025 2:50 PM CDT Body Mass Index 22.91 01/22/2025 2:50 PM CDT documented in this encounter Functional Status * AUDIT-C Score Answer Date of Assessment Author 1 01/22/2025 2:51 PM CDT Perfecto Killian, BRAD * Question Answer Date of Assessment Author Q1: How often do you have a drink containing alcohol? Monthly or less 01/22/2025 2:51 PM Carolina Hill, BRAD Q2: How many drinks containing alcohol do you have on a typical day when you are drinking? 1 or 2 01/22/2025 2:51 PM Carolina Hill, BRAD Q3: How often do you have six or more drinks on one occasion? Never 01/22/2025 2:51 PM Carolina Hill CMA documented as of this encounter Plan of Treatment Scheduled Orders Name Type Priority Associated Diagnoses Orde r Schedule CT Abdomen Pelvis W Contrast Imaging Schedule Routine, Read Routine (OP Routine) Left groin pain History of inguinal hernia repair Expected: 01/22/2025, Expires: 01/22/2026 documented as of this encounter Visit Diagnoses Diagnosis Left groin pain- Primary Abdominal pain, left lower quadrant History of inguinal hernia repair documented in this encounter Orders Outpatient Referral Count Last Ordered Date Fir st Ordered Date AMB REFERRAL TO MINIMALLY INVASIVE SURGERY 1 01/22/2025 documented in this encounter Care Teams Organization Development Consultant Relationship Specialty Start Date End Date Oskar Richardson MD [address] [place] [address] PCP - General 09/06/18 documented as of this encounter
--- NOTE | ~2025-01-23 | CT_ITS ---
EXAMINATION: CT abdomen pelvis wo con DATE: 01/23/2025 11:08 INDICATION: Unspecified abdominal pain. TECHNIQUE: Computed tomography (CT) of the abdomen and pelvis was performed without intravenous contrast. The dose-length product was 309.18 mGy-cm. COMPARISON: 03/13/2024 FINDINGS: Lung bases are clear. Liver, spleen, adrenal glands, gallbladder and pancreas are unremarkable. There is a 2 mm nonobstructing left renal stone. No hydronephrosis. Abdominal aorta is not aneurysmal. No bladder calculi. No enlarged lymph nodes in the abdomen or pelvis identified. No free fluid identified in the abdomen or pelvis. Moderate amount of stool. No appendicitis. No compression fracture in the visualized spine. Thickening of the faustin of the transverse colon. Differential includes incomplete bowel wall thickening or colitis. IMPRESSION: 1. Thickening of the faustin of the transverse colon. Differential includes incomplete bowel wall thickening or colitis. Recommend follow-up to resolution to exclude an underlying mass. 2. Tiny nonobstructing left renal stone. Reviewed, dictated and finalized at location A. IMPRESSION: 1. Thickening of the faustin of the transverse colon. Differential includes incom plete bowel wall thickening or colitis. Recommend follow-up to resolution to ex clude an underlying mass. 2. Tiny nonobstructing left renal stone.
--- OUTSIDE RECORDS SUMMARY | 2025-01-23 11:31 | XMS_ITS | Clinical Summary ---
Author Organization [facility] Address [address] [place] [address] Care Team Providers Care Student Development Dean Name Role Phone Oskar Richardson MD Primary Care Provider [phone] Allergies No known active allergies Medications pantoprazole DR (PROTONIX) 40 mg EC tablet Take 1 tablet (40 mg total) by mouth daily 30 tablet 1 09/10/2018 Active Active Problems Problem Noted Date Diagnosed Date Epigastric pain 09/10/2018 Assessment & Plan (09/10/2018 3:48 PM CDT): Epigastric pain with nausea. Differential to include peptic ulcer disease, gastritis, esophagitis, GERD, celiac disease, gallbladder dysfunction, and IBS. CT imaging ruled out pancreatitis, cholelithiasis, and cholecystitis. Spleen is enlarged. Will schedule EGD for evaluation. If negative, consider HIDA scan. Will check amylase to complete GI work up. Will order pantoprazole 40 mg daily. Nausea 09/10/2018 Bowel habit changes 09/10/2018 Assessment & Plan (09/10/2018 3:48 PM CDT): CT of abdomen showed colitis of the descending and sigmoid colon, possibly the right side of the colon, also. Will schedule colonoscopy. Differential to include ulcerative colitis and Crohn's. Less likely to be infectious as stools are now hard. This may be related to taking the dicyclomine and zofran. Not likely ischemic in nature due to normal labs and improvement of symptoms without intervention. Abnormal finding on GI tract imaging 09/10/2018 Elevated bilirubin 09/10/2018 Assessment & Plan (09/10/2018 3:39 PM CDT): May have Gilbert's Syndrome. Will check haptoglobin. Cannot rule out biliary source. Abnormal findings on radiolo gical examination of gastrointestinal tract 09/10/2018 Overview (09/10/2018): Added automatically from request for surgery [id number] Encounters Date Type Department Care Team Description 01/22/2025 3:00 PM CDT Office Visit [facility] [address] [place] [address] Medical Office Building [address] [place] [address] Evaristo Tinoco MD Left groin pain (Primary Dx); History of inguinal hernia repair from Last 3 Months Surgical History Surgery Date Site/Laterality Comments COLONOSCOPY 09/18/2018 UPPER GASTROINTESTINAL ENDOSCOPY 09/18/2018 INGUINAL HERNIA REPAIR Bilateral Robotic Medical History Medical History Date Comments Known health problems: none GERD (gastroesophageal reflux disease) Chronic diarrhea Chronic constipation Family History Medical History Relation Name Comments Hypertension Father Hypertension Paternal Grandmother Relation Name Status Comments Father Paternal Grandmother Social History Tobacco Use Types Packs/Day Years [...] on file Legal Sex Male 10:45 PM DATA M[employer]RATION [employer]ANT Gender Identity Not on file Sexual Orientation Straight 09/07/2018 9: 47 PM CDT Obstetrics History Last Filed Vital Signs Vital Sign Reading Time Taken Comments Blood Pressure 111/77 01/22/2025 2:50 PM CDT Pulse 94 01/22/2025 2:50 PM CDT Temperature 37.1 C (98.8 F) 01/22/2025 2:50 PM CDT Respiratory Rate 15 09/18/2018 2:55 PM CDT Oxygen Saturation 95% 01/22/2025 2:50 PM CDT Inhaled Oxygen Concentration - - Weight 80.9 kg (178 lb 6.4 oz) 01/22/2025 2:50 P M CDT Height 188 cm (6' 2) 01/22/2025 2:50 PM CDT Body Mass Index 22.91 01/22/2025 2:50 PM CDT Plan of Treatment Health Maintenance Due Date Last Done Comments Depression Screening 1991 Hepatitis C Screening 1991 Varicella Vaccines (1 of 2 - 13+ 2-dose series) 08/20/2004 Hepatitis B Screening 08/20/2009 Regular Well Visit/Exam 18-64 08/20/2009 HPV Vaccines (1 - 3-dose SCDM series) 08/20/2018 Influenza Vaccine (#1) 2025 06/29/2024, 2021 DTaP/Tdap/Td Vaccine (2 - Td or Tdap) 10/30/2033 10/31/2023 Covid-19 Vaccine Completed 11/13/2024, , 09/04/2020, Additional history exists Pneumococcal vaccine <65 Aged Out No longer eligible based on patient's age to complete this topic Insurance [employer] [facility] PL[facility] HMO/PPO Address: [address] [place] [address] . [place] [address] [facility] PL[facility] HMO/PPO Address: [address] [address] [place] [address] Advance Directives For more information, please contact: [phone] * Full Code (Latest Code Status on File) Date Activated Date Inactivated Comments 09/18/2018 1:32 PM 09/18/2018 7:20 PM Care Teams Student Development Dean Relationship Specialty Start Date End Date Oskar Richardson MD [address] [place] [id number] PCP - General 09/06/18
== END 2025-01-23 10:45 | disposition home or self-care (01) ==
LOC: ANHIMG 10:48
PROVIDERS: PCP Family Medicine
DX: K63.89 Other specified diseases of intestine (principal); N20.0 Calculus of kidney
CPT/HCPCS: 74176

== ENCOUNTER 2025-03-13 00:28 | Day surgery (SDC) | payer OTHER, SELFPAY ==
[2025-03-04 13:54] VITALS: BMI 24.5
[2025-03-13 09:15] VITALS: BP 118/89; PULSE 101; RESP 18; TEMP 36.6; O2SAT 99
[2025-03-13] MEDS: LACTATED RINGERS 1,000 ML 150 ML IV CONT (09:25)
--- NOTE | 2025-03-13 09:39 | P.PNAN_ITS ---
Anes - Initial Pre Proc Eval Procedure: Operation Date: 03/13/25 10:30 Proposed Procedures p Screening Colonoscopy - George Guido MD Date/Time: 03/13/25 09:39 Surgeon: George Guido MD Pre Op Diagnosis: Personal history of colon polyps, unspecified Patient Data Age: 34 Gender: M Height: 1.83 m Weight: 82.1 kg Last Vital Signs Temp 98 F 03/13/25 09:15 Pulse 101 H 03/13/25 09:15 Resp 18 03/13/25 09:15 BP 118/89 03/13/25 09:15 Pulse Ox 99 03/13/25 09:15 O2 Del Method Room Air 03/13/25 09:15 Allergies Allergy/AdvReac Type Severity Reaction Status Date / Time No Known Allergies Allergy Mild Verified 03/04/25 14:06 Home Medications ?Medication ?Instructions ?Recorded ?Confirmed ?Type diclofenac sodium 75 mg 75 mg PO BID #60 tabs 03/04/25 Rx tablet,delayed release peg 3350-electrolytes 236 240 ml PO Q10M #4,000 mL 03/04/25 Rx gram-22.74 gram-6.74 gram-5.86 gram solution (Golytely) Patient hx anesthesia problems: none Family hx anesthesia problems: none Results Review: All pre-operative results and documents have been reviewed as part of the pre- operative evaluation. [facility] Past Medical History Medical History Abnormal CT scan, colon Loose stools Personal history of colonic polyps Rectal bleeding Tachycardia, unspecified Pure hypercholesterolemia, unspecified Surgical History Surgical History History of inguinal hernia repair 04/08/20 laparoscopic LIH repair with progrip mesh, davinci assisted. History of inguinal hernia repair 02/14/2023 Laparoscopic robotic assisted right inguinal hernia repair [place] teeth removed Family History Family History Father Hypertension Social History Social History Smoking status: Never smoker Alcohol intake: current Drinks per week: 2 Alcohol use details: social Substance use: never Substance use type: does not use Do You Feel Safe in your Home?: Yes Lack of Transportation: No Lack of Food: Never True Current Housing: I Have Housing Concerned About Future Housing: No Difficulty Paying Gas/Electric Bills: No Difficulty Paying for Meds: No Currently Unemployed: No Education: Bachelor's Degree Difficulty w/ Childcare or Family Care: No Living arrangements: with family Occupation/Education: occupation Additional occupation/education comments: Salesman Gender identity (if verbalized by the patient): Male Sexual Orientation (if Verbalized by the Patient): Straight or Heterosexual Spiritual care concerns: No Anes - Eval Final PreProcedure Day of Procedure 03/13/25 09:39 Patient weight: normal Lungs: normal air movement Airway: Mallampati scale Neurological: No alert and oriented Last oral intake: >/= 8 hours ASA classification: I Emergent: no Anesthetic plan: proceed Anesthesia type and monitoring: general GIVS and standard monitoring Results Review: All pre-operative results and documents have been reviewed as part of the pre- operative evaluation. Healthy, hx of colon polyps. Informed Consent: The patient's anesthetic plan and its attendant risks and benefits were discussed with the patient/family/POA. Questions were solicited and answers provided to the satisfaction of the patient/family/POA.
--- NOTE | 2025-03-13 10:05 | WPDHPUPDATE1 ---
History and Physical Update Update Date/Time: 03/13/25 10:05 History and Physical has been reviewed, including an updated exam of the patient. There are NO changes in the patient's condition. Risks, benefits, and alternatives have been discussed and questions answered. Patient agrees to proceed with procedure.
[2025-03-13 10:21] VITALS: BP 107/68; PULSE 81; RESP 20; O2SAT 100
[2025-03-13 10:31] VITALS: BP 123/78; PULSE 77; RESP 17; O2SAT 100
[2025-03-13 10:41] VITALS: BP 120/82; PULSE 74; RESP 18; O2SAT 100
== END 2025-03-13 10:48 | disposition home or self-care (01) ==
PROVIDERS: Referring Provider Internal Medicine Gastroenterology; Visit Provider Internal Medicine Gastroenterology
PROC: 0DJD8ZZ Inspection of Lower Intestinal Tract, Via Natural or Artificial Opening Endoscopic (ICD-10-PCS; CPT 45378; principal; 2025-03-13 10:30)
DX: R93.3 Abnormal findings on diagnostic imaging of other parts of digestive tract (principal); K64.8 Other hemorrhoids; R00.0 Tachycardia, unspecified; E78.00 Pure hypercholesterolemia, unspecified; Z98.890 Other specified postprocedural states; Z86.0100 Personal history of colon polyps, unspecified
CPT/HCPCS: 45378; J2003; J2704; J7120